=== PATIENT | female | born 1985 | race Caucasian/White ===

== ENCOUNTER 2021-09-07 10:06 | Emergency (ER) | payer OTHER, SELFPAY ==
--- NOTE | ~2021-09-07 | CT_ITS ---
EXAMINATION: CT abdomen pelvis w con EXAM DATE: 09/07/2021 14:59 INDICATION: Nausea nausea with dry heaves x4days. TECHNIQUE: Spiral CT of the abdomen and pelvis was performed following intravenous injection of 100 m L Omnipaque 350. Axial, coronal and sagittal images of the abdomen and pelvis were reviewed. The do se-length product (DLP) for this examination was 427.32 mGy-cm. The exposure was tailored according to patient size (auto mA exposure control), and iterative reconstruction (ASIR) was used as additiona l dose reduction technique. Comparison is made to prior examination from 12/06/2018. FINDINGS: The liver, spleen, adrenal glands and pancreas are unremarkable. There are cholecystectomy clips. Portal and splenic veins are patent. Kidneys enhance symmetrically. There is no hydronephr osis. There is IUD which appears to be centrally located within the endometrium, expected position. The bladder is unremarkable. There is no retroperitoneal or pelvic lymphadenopathy. Possible appendectomy. The stomach and small bowel are unremarkable. There is expected amount of co lonic stool. No free intraperitoneal gas. The heart is normal in size. There are no pericardial or pleural effusions. Dependent subsegmental atelectasis. The bones are unremarkable. IMPRESSION: 1. No acute intra-abdominal findings. Reviewed, dictated and finalized at location B. [employer]
[2021-09-07] MEDS: PANTOPRAZOLE SODIUM IV 40 MG VIAL IV PUSH (13:42)
[2021-09-07] MEDS: ONDANSETRON INJ 4 MG/2 ML VIAL IV PUSH (13:42)
[2021-09-07] MEDS: SODIUM CHLORIDE 0.9% IV 500 ML 999 ML IV CONT (13:42)
[2021-09-07 13:55] VITALS: BP 116/74; PULSE 87; RESP 20; TEMP 36.7; O2SAT 98
[2021-09-07 13:55] LABS: Basophils Absolute Auto 0.01 K/mm3 (0.00-0.10); Basophils Percent Auto 0.2 % (0.0-1.0); Hematocrit 41.5 % (35.0-49.0); Hemoglobin 13.9 g/dL (12.0-15.0); Immature Granulocyte Absolute 0.01 K/mm3 (0.00-0.00); Immature Granulocyte Percent A 0.2 % (0.0-0.0); Lymphocytes Absolute Auto 0.98 K/mm3 (1.10-4.50); Mean Corpuscular HGB Conc 33.5 g/dL (32.0-36.0); Mean Corpuscular Hemoglobin 29.3 pg (27.0-31.0); Mean Corpuscular Volume 87.6 fL (78.0-102.0); Mean Platelet Volume 9.7 fl (9.2-11.8); Monocytes Absolute Auto 0.41 K/mm3 (0.10-0.90); Monocytes Percent Auto 6.3 % (2.0-11.0); Neutrophils Absolute Auto 5.1 K/mm3 (1.7-7.2); Neutrophils Percent Auto 78.3 % (50.0-70.0); Platelet Count Result 264 K/mm3 (150-420); Red Blood Count 4.74 M/mm3 (4.20-5.40); Red Cell Distribution Width 12.8 % (11.6-14.4); White Blood Count 6.5 K/mm3 (4.8-10.8)
[2021-09-07 14:10] LABS: Alanine Aminotransferase 14 U/L (14-59); Albumin Level 3.9 g/dL (3.4-5.0); Alkaline Phosphatase 94 U/L (46-116); Anion Gap 11 mmol/L (8-16); Aspartate Amino Transferase 12 U/L (15-37); Bilirubin,Total 0.7 mg/dL (0.00-1.00); Blood Urea Nitrogen 7 mg/dL (7-18); Calcium 8.7 mg/dL (8.5-10.1); Carbon Dioxide 26 mmol/L (21-32); Chloride 101 mmol/L (98-108); Estimated CRCL calculation 79 ml/min; Estimated Glomerular Filt Rate > 60; Glucose 83 mg/dL (70-99); Lipase 78 U/L (73-393); Osmolality Calculated 283 mOsm/kg (285-295); Potassium 3.6 mmol/L (3.5-5.1); Sodium 138 mmol/L (136-145); Total Protein 7.9 g/dL (6.4-8.2)
[2021-09-07 14:20] LABS: SARS-CoV-2 Ag Negative (Negative)
[2021-09-07 14:25] LABS: SPREG INTERNAL CONTROL Positive; Serum Qual hCG Negative
[2021-09-07 15:13] LABS: Add Urine Microscopic? YES; Appearance Urine Clear (Clear); Bilirubin Urine Negative (Negative); Blood Urine Negative (Negative); Color Urine Light Yellow (Yellow); Glucose Urine UA Negative (Negative); Ketones Urine 2+ (Negative); Leukocyte Esterase Ur 1+ (Negative); Nitrate Urine Negative (Negative); Protein Urine Negative (Negative); Urobilinogen Urine 0.2 mg/dL (0.2-1.0)
[2021-09-07 15:19] LABS: RBC Urine 0-2 /hpf (0-2); Squamous Epithelial Cell Urine Moderate /hpf (Few); WBC Urine 16-20 /hpf (0-3)
[2021-09-07 15:21] LABS: Bacteria Urine 2+ /hpf; Mucus Urine Few /lpf
--- NOTE | 2021-09-07 16:32 | ED.NAVMDI ---
HPI - Nausea/Vomiting/Diarrhea General Source: patient Mode of arrival: ambulatory Limitations: no limitations History of Present Illness MD elicited complaint: nausea and abdominal pain Onset (ago): day(s) (1) Associated nausea: Yes Associated abdominal pain: Yes Location of pain: suprapubic Radiation: does not radiate Pain consistency: constant Severity: mild Pain scale (0-10): 7 Quality: cramping and aching Exacerbating factors: none Relieving factors: none Associated symptoms: nausea/vomiting and dysuria Related Data Home Medications Medication Instructions Recorded Confirmed fluoxetine 20 mg PO DAILY 09/07/21 09/07/21 Allergies Allergy/AdvReac Type Severity Reaction Status Date / Time No Known Allergies Allergy Verified 09/07/21 14:38 Review of Systems Review of Systems: All systems reviewed & are unremarkable except as noted in HPI and below PMFSH Past Medical History Medical History UTI (urinary tract infection) Surgical History Surgical History History of appendectomy Social History Social History Smoking status: Never smoker Substance use: never Exam Const: General: no acute distress Orientation/consciousness: patient oriented x3 Limitations: no limitations HENMT: Head: normal to inspection Ears: external ears normal and TM's normal bilaterally General nose exam: Normal external nose present and Normal nares present Mouth: Yes lip normal and Yes moist mucous membranes Teeth and gingiva: dentition normal Throat: posterior oropharynx normal Eyes: Pupils: Equal, round and reactive pupils present EOM: EOMs intact bilaterally Neck: Neck: normal visual inspection and no lymphadenopathy Chest: Chest palpation & inspection: normal inspection of the chest Resp: Effort & Inspection: normal respiratory effort Auscultation: clear to auscultation bilaterally Cardio: Rate: regular rate Rhythm: regular rhythm GI: GI Palp: Yes Soft to palpation and No Tenderness to palpation present (GI) Auscultation: normal bowel sounds : General: Yes no CVA tenderness Other: no acute bladder abnormality. Back/Spine/Pelvis: Back: no CVA tenderness Skin: General skin exam: normal color Rashes: no rashes Neuro: General: patient oriented x3, moves all extremities, no meningeal signs, no focal motor deficits and CN's II-XI intact bilaterally Extrem: General: normal to inspection and no pedal edema Psych: Appearance: grossly normal and well kempt Mental Status: mental status grossly normal Affect: normal affect Thought content: Yes Normal thought content present Course Course Emergency Course: Pt was stable in the ED. no acute GI loss. Reevaluation(s) Reevaluation #1: vss. pt was comfortable in the ED. Date: 09/07/21 Time: 11:04 Vital Signs Vital signs: Vital Signs Temperature 36.7 C 09/07/21 13:55 Pulse Rate 87 09/07/21 13:55 Respiratory Rate 20 09/07/21 13:55 Blood Pressure 116/74 09/07/21 13:55 Pulse Oximetry 98 09/07/21 13:55 Temperature 36.7 C 09/07/21 16:51 Pulse Rate 101 H 09/07/21 16:51 Respiratory Rate 20 09/07/21 16:51 Blood Pressure 102/76 09/07/21 16:51 Pulse Oximetry 98 09/07/21 16:51 MDM - Nausea/Vomiting/Diarrhea Differential Diagnosis Differential diagnosis: Likely gastroenteritis, dehydration and other (uti) Medical Records Attestation: I reviewed the patient's medical records. Lab Data Attestation: I reviewed the patient's lab results. Result diagrams: 09/07/21 13:48 09/07/21 13:48 Labs: Lab Results 09/07/21 09/07/21 09/07/21 Range/Units 13:14 13:48 13:48 WBC 6.5 (4.8-10.8) K/mm3 RBC 4.74 (4.20-5.40) M/mm3 Hgb 13.9 (12.0-15.0) g/dL Hct 41.5 (35.0-49.0) % MCV 87.6 (78.0-102.0) fL MCH 29.3
[2021-09-07 16:51] VITALS: BP 102/76; PULSE 101; RESP 20; TEMP 36.7; O2SAT 98
--- NOTE | 2021-09-07 16:53 | PC.NURSE ---
1650 IV WAS D/C'D ROCEPHIN 1 GRAM GIVEN IM LEFT GLUTEAL
== END 2021-09-07 16:53 | disposition home or self-care (01) ==
PROVIDERS: Emergency Provider Emergency Medicine; PCP Family Medicine
DX: N39.0 Urinary tract infection, site not specified (principal); Z20.822 Contact with and (suspected) exposure to COVID-19
CPT/HCPCS: 36415; 74177; 80053; 81001; 83690; 84703; 85025; 87426; 96361; 96374; 96375; 99283; 99284; C9113; C9803; J0696; J2405; J7040; Q9967

== ENCOUNTER 2024-05-08 14:00 | Outpatient (CLI) | payer OTHER, SELFPAY | END 2024-05-08 14:01 | disposition home or self-care (01) | LOC: CHSIMG 14:05 | PROVIDERS: PCP Family Medicine | DX: R10.32 Left lower quadrant pain (principal) | CPT/HCPCS: 99199 ==

== ENCOUNTER 2024-05-12 17:30 | Outpatient (CLI) | payer OTHER, SELFPAY ==
--- NOTE | ~2024-05-12 | CT_ITS ---
EXAMINATION: CT abdomen pelvis w con DATE: 05/12/2024 19:10 INDICATION: Left lower quadrant pain. TECHNIQUE: Computed tomography (CT) of the head was performed with 100 cc Omnipaque 350 intravenous c ontrast. The dose-length product was 563.11 mGy-cm. Automated exposure control and iterative reconstr uction technique were employed. COMPARISON: None FINDINGS: Lung bases are unremarkable. Heart size normal. No significant pleural or pericardial effus ion. Status post cholecystectomy. The liver, spleen, pancreas, adrenal glands and kidneys are unremar kable. Status post appendectomy. There is an involuting corpus luteal cyst of the right ovary measuri ng 2.4 cm. Nonobstructive bowel pattern. No evidence for diverticulitis. No hydronephrosis. There is a prominent left ovarian vein with prominent parametrial vessels, suspicious for pelvic congestion sy ndrome. IMPRESSION: 1. Prominent left ovarian vein with prominent parametrial vessels, suspicious for pelvic congestion s yndrome. Reviewed, dictated and finalized at location B. IMPRESSION: 1. Prominent left ovarian vein with prominent parametrial vessels, suspicious f or pelvic congestion syndrome.
[2024-05-12 17:59] LABS: Estimated Glomerular Filt Rate > 60
== END 2024-05-12 17:31 | disposition home or self-care (01) ==
LOC: CHSIMG 17:34 → CHSLAB 17:41
PROVIDERS: PCP Family Medicine
DX: R10.32 Left lower quadrant pain (principal)
CPT/HCPCS: 74177; Q9967

== ENCOUNTER 2024-09-17 14:01 | Outpatient (CLI) | payer OTHER, SELFPAY | END 2024-09-17 14:02 | disposition home or self-care (01) | LOC: ANHLAB 14:01 | PROVIDERS: PCP Family Medicine; Visit Provider Obstetrics & Gynecology | DX: N94.89 Other specified conditions associated with female genital organs and menstrual cycle (principal) | CPT/HCPCS: 36415; 86850; 86900; 86901 ==

== ENCOUNTER 2024-09-24 01:33 | Day surgery (SDC) | payer OTHER, SELFPAY ==
--- NOTE | 2024-09-11 15:20 | PC.NURSE ---
Report to the Outpatient Waiting Room, entrance under the green pavilion located off [facility], at time 0600 on date 09/24/24. Planned Procedure Time: 0730.? Time changes happen often and if your time is changed the preop area will call you the afternoon before. - You and your visitor will be asked to self-screen and do not enter if you have any COVID symptoms. Please call surgeon if you need to reschedule. - A mask is optional within the hospital at this time. Patients may have clear liquids (water, carbonated beverages, clear teas, apple juice) until 3 hours prior to surgery with a maximum of 20 ounces. 0430 - No food from midnight until time of surgery and no smoking. This includes no chewing gum, candy or mints. - Infants may have breast milk until 4 hours before surgery, formula 6 hours prior to surgery. - Children will be allowed to drink immediately following surgery.? If applicable, please bring a bottle or sippy cup to assist with drinking. Juice, water, soda, and popsicles are readily available.? For infants on formula, please bring formula the day of surgery.? Pacifiers are allowed. Take only the following medications with a SIP of water on the morning of surgery: None DO NOT STOP ANY OF YOUR OTHER PRESCRIPTION MEDICATIONS PRIOR TO SURGERY EXCEPT THE FOLLOWING Medications to discontinue per physician Vitamins & Supplements, Certrizine Date to take last dose 09/21/24- stop all vitamins and supplements, hold certrizine morning of surgery Please no make-up, nail barbadian, hairspray, perfume, deodorant, or body powder the day of surgery.? No jewelry (including any body piercings) or valuables the day of surgery, leave them at home.? Please take a shower or bath the night before, or the morning of, surgery with an antibacterial soap.? Wear comfortable, loose fitting clothing.? Children are encouraged to wear pajamas. - Jewelry must be removed prior to entering the operating room.? Rings and piercings that are not removed may be cut off. - The hospital will not accept responsibility for valuables.? - Please leave all valuables, including medications, at home the day of surgery. If you are going home after surgery, a licensed driver lifter of sanitation truck must drive you home.? - NO public transportation without another adult if you receive anesthesia. - We recommend that an adult stay with you for 24 hours following discharge. - We also recommend that you do not drive, make important decision, drink alcoholic beverages, or take any drugs that were not prescribed by your health care provider for at least 24 hours after your discharge time. For Pediatric surgeries, we recommend two adults accompany the child home. Follow any additional instructions given to you from your surgeon. Telephone instructions given to Patient- Arabella Christianson and asked if any additional questions and then verbalized understanding. Patient advised to call surgeon office or pre surgery nurse liaison [phone] if any additional questions.
[2024-09-11 15:28] VITALS: BMI 26.6
[2024-09-24] VITALS (11 sets, daily range): BP systolic 73–121; BP diastolic 39–80; PULSE 60–107; RESP 14–68; TEMP 36.1–37.1; O2SAT 97–100
--- NOTE | ~2024-09-24 | XR_ITS ---
EXAMINATION: XR stent kub - surgery DATE: 09/24/2024 08:12 INDICATION: Ureteral stent placement for abdominal surgery TECHNIQUE: 4 fluoroscopic images of the abdomen were obtained during procedure performed by Dr. Stanley méndez. Radiologist was not present for the imaging or procedure. The amount of fluoroscopy time used during this procedure was 0.8 minutes. COMPARISON: None. FINDINGS: Images demonstrate the catheter is advanced into the proximal left and right ureters. Contr ast injected through the catheters opacifies the normal-appearing bilateral renal collecting systems. IMPRESSION: 1. Fluoroscopy utilized during bilateral internal ureteral stent placement. See procedure note for fu rther detail. Reviewed, dictated and finalized at location A. [employer] SPRAY WORKER IMPRESSION: 1. Fluoroscopy utilized during bilateral internal ureteral stent placement. See procedure note for further detail.
[2024-09-24] MEDS: LACTATED RINGERS 1,000 ML 30 ML IV CONT ×2 (06:30→09:19)
[2024-09-24] MEDS: ACETAMINOPHEN 500 MG TABLET 1000 MG PO ×3 (07:00→17:33)
[2024-09-24] MEDS: KETOROLAC 15 MG/ML VIAL (*BKC) IV PUSH (07:00)
--- NOTE | 2024-09-24 07:01 | WPDANESEPPF ---
Anes - Initial Pre Proc Eval Procedure: Operation Date: 09/24/24 07:30 Proposed Procedures p Total Laparoscopic Hysterectomy with Bilateral Salpingectomy - Home Brannon MD s Stent Placement for Abdominal Surgery - Mandy Yi MD Date/Time: 09/24/24 07:01 Surgeon: Home Brannon MD Pre Op Diagnosis: Pelvic Congestion Synd Patient Data Age: 39 Gender: F Height: 1.65 m Weight: 72.7 kg Allergies Allergy/AdvReac Type Severity Reaction Status Date / Time fluconazole [From Diflucan] Allergy Redness of Verified 09/11/24 15:07 Skin hydromorphone [From Dilaudid] AdvReac Agitated Verified 09/11/24 15:07 Home Medications Medication Instructions Recorded Confirmed Type cetirizine 10 mg capsule (All Day 10 mg PO DAILY PRN allergies 06/13/23 09/11/24 History Allergy (cetirizine)) cranberry-vit 1 cap PO DAILY 09/11/24 09/11/24 History C-B.coag-FOS-L.acid-L.rham 250 mg-30 mg-39.5 mg capsule vitamin B complex 1 tablet PO DAILY 09/11/24 09/11/24 History Patient hx anesthesia problems: post op nausea/vomiting Family hx anesthesia problems: none Results Review: All pre-operative results and documents have been reviewed as part of the pre-operative evaluation. [facility] Past Medical History Medical History UTI (urinary tract infection) Surgical History Surgical History History of appendectomy Social History Social History Smoking status: Never smoker Substance use: never Living arrangements: with family Spiritual care concerns: No Anes - Eval Final PreProcedure Day of Procedure 09/24/24 07:01 Patient weight: overweight Heart: regular rate and rhythm Lungs: clear to auscultation Airway: Mallampati scale class II Neurological: alert and oriented Last oral intake: >/= 8 hours ASA classification: II Emergent: no Anesthetic plan: proceed Anesthesia type and monitoring: general LMA and standard monitoring Results Review: All pre-operative results and documents have been reviewed as part of the pre-operative evaluation. Informed Consent: The patient's anesthetic plan and its attendant risks and benefits were discussed with the patient/family/POA. Questions were solicited and answers provided to the satisfaction of the patient/family/POA.
--- NOTE | 2024-09-24 07:15 | WPDHPUPDATE1 ---
History and Physical Update Update Date/Time: 09/24/24 07:15 procedure to possibly include Left oophorectomy History and Physical has been reviewed, including an updated exam of the patient. There are NO changes in the patient's condition. Risks, benefits, and alternatives have been discussed and questions answered. Patient agrees to proceed with procedure.
--- NOTE | 2024-09-24 07:23 | WPDURCON ---
Assessment and Plan Assessment and plan (1) Dyspareunia: Status: Acute Plan 39 year old scheduled for hysterectomy -- plan bilateral internal/external stent insertion for ureteral identification - risks, benefits, alternatives discussed. Agree to proceed. Urology Consult Note HPI Date Seen: 09/24/24 Requesting Physician: Home Brannon MD Primary Care Provider: Jamal Gross M.D. Consult Narrative Narrative: Arabella Christianson is a 39 year old female here for hysterectomy PMFSH Past Medical History Medical History UTI (urinary tract infection) Surgical History Surgical History History of appendectomy Social History Social History Smoking status: Never smoker Substance use: never Living arrangements: with family Spiritual care concerns: No Meds Home Medications and Allergies Home Medications Medication Instructions Recorded Confirmed Type cetirizine 10 mg capsule (All Day 10 mg PO DAILY PRN allergies 06/13/23 09/11/24 History Allergy (cetirizine)) cranberry-vit 1 cap PO DAILY 09/11/24 09/11/24 History C-B.coag-FOS-L.acid-L.rham 250 mg-30 mg-39.5 mg capsule vitamin B complex 1 tablet PO DAILY 09/11/24 09/11/24 History Allergies Allergy/AdvReac Type Severity Reaction Status Date / Time fluconazole [From Diflucan] Allergy Redness of Verified 09/11/24 15:07 Skin hydromorphone [From Dilaudid] AdvReac Agitated Verified 09/11/24 15:07 Exam Narrative: awake, alert, no acute distress
--- NOTE | 2024-09-24 07:26 | WPDHPUPDATE1 ---
History and Physical Update Update Date/Time: 09/24/24 07:26 History and Physical has been reviewed, including an updated exam of the patient. There are NO changes in the patient's condition. Risks, benefits, and alternatives have been discussed and questions answered. Patient agrees to proceed with procedure.
[2024-09-24] MEDS: ceFAZolin 2 GM/D5W 50 ML 2 GM/50 ML BAG IVPB (07:40)
[2024-09-24] MEDS: ceFAZolin SODIUM 1 GM VIAL (07:40)
[2024-09-24] MEDS: SCOPOLAMINE 1 MG PATCH 1 PATCH TRANSDERM (07:44)
[2024-09-24 07:54] LABS: BEDSIDEPREGUCG Negative (Negative)
--- NOTE | 2024-09-24 08:04 | P.OP_ITS ---
Procedure Note - Detailed Date of Procedure 09/24/24 Pre-op Diagnosis Pelvic Congestion Synd Post-op Diagnosis Same Procedure Performed Cystoscopy, bilateral internal-external ureteral stent insertion, bilateral retrograde pyelogram Surgeon Mandy Yi MD Anesthesia General Description of Procedure Informed consent was obtained. Patient in the room. She was given preoperative IV antibiotics. She was just anesthesia. She was placed in dorsal lithotomy position she was prepped and draped in normal sterile fashion. We inserted a 22 F cystoscope through the urethra into the bladder. Inspection of bladder revealed no mucosal abnormalities. The patient had bilateral orthotopic your offices. We cannulated the left ureteral orifice with a wire and then placed a 6 F introducer over the wire. Retrograde pyelogram was performed showing appropriate position. Over the wire replaced the introducer and lighted stent. We performed identical procedure on the contralateral side. Appropriate position of stent was confirmed with radiography. A 16 F Correa catheter was placed. The stents were adhered to the catheter. 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 Plan for stent removal at completion of operation Complications No immediate complications Condition Stable
[2024-09-24] MEDS: fentaNYL CITRATE INJ (*CRX) 100 MCG/2 ML VIAL 25 MCG IV PUSH ×12 (09:24→10:28)
[2024-09-24] MEDS: ONDANSETRON INJ 4 MG/2 ML VIAL IV PUSH ×2 (09:34→14:22)
--- NOTE | 2024-09-24 09:39 | W.PM.PROC2 ---
Procedure Note - Detailed Date of Procedure 09/24/24 Pre-op Diagnosis Pelvic Congestion Synd Post-op Diagnosis Same Procedure Performed Total laparoscopic hysterectomy and bilateral salpingo-oophorectomy. Surgeon Home Brannon MD Anesthesia General Findings Cystic left ovary. enlarged uterus - mild. Description of Procedure This patient was taken to the operating room. She was prepped and draped in the dorsal lithotomy position after induction of general anesthesia. The uterine manipulator and Davina cup were placed. This was done with a speculum and tenaculum. The speculum was placed. The cervix was grasped with a tenaculum. The stay sutures were placed at 3 and 9:00 a.m.. The stay sutures of 0 Vicryl were brought through the appropriately sized Davina cup. The tip of the OXANA manipulator was placed in the intrauterine cavity. The cup was slid into place around the cervix and into the fornices. It was locked into place. The sutures were then wrapped around the handle and tied under tension. A 5 mm skin incision was made in the left upper quadrant the abdomen. A 5 mm trocar was inserted into the intrauterine cavity under direct visualization of the scope. Pneumoperitoneum was achieved. A left lower quadrant 11 mm incision was made with scalpel. An 11 mm trocar was inserted into the anterior abdominal cavity under direct visualization the scope. A 5 mm infraumbilical incision was made with a scalpel and a 5 mm trocar was inserted the intra-abdominal cavity under direct visualization of the scope. Bilateral ureteral lysis was performed. This was done from the pelvic brim down to the uterine artery. This was done with careful dissection using sharp and blunt dissection. The infundibulopelvic ligaments were isolated after identification of the ureters bilaterally. The infundibulopelvic ligament on the left side was cauterized and transected with LigaSure cautery. The para ovarian tissue was cauterized and transected with LigaSure cautery on the left. Moving around the ovary into the broad ligament the tissue was cauterized transected with LigaSure cautery. the suspensory ligament on the ovary was cauterized transected on the right. The fallopian tube was excised using LigaSure cautery. The round ligaments were cauterized transected with LigaSure cautery this was done in a bilateral fashion. In a stepwise fashion along the lateral aspects of the uterus the round ligament and broad ligaments were cauterized transected down to the level of the uterine arteries. A bladder flap was created in the bladder was moved distally to the end of the cervix and over the Davina cup. The bilateral uterine arteries were cauterized and transected. Colpotomy was then performed. In a circumferential fashion the vagina was transected using unipolar cautery. The incision was made down on the Davina cup. The uterus, cervix, fallopian tubes and ovaries were taken out through the vagina. A pneumo occluder was placed in the vagina. The vaginal cuff was closed with a 0 V lock suture in a running fashion. The pelvis was irrigated with copious amounts antibiotic irrigation. The ureters were again examined and found to be intact and flowing freely under the uterine arteries into the bladder. The vagina was irrigated with Betadine solution after removal of the Pneumo occluder. The patient was taken to recovery room. She was stable condition. Sponge lap and needle counts were correct x2. Estimated Blood Loss 100 Drains Yes Packing No Pathology Yes Complications No immediate complications Condition Stable Disposition Floor
[2024-09-24] MEDS: DEXTROSE 5%/0.45% SOD CHL 1,000 ML 125 ML IV CONT ×2 (11:07→22:40)
--- NOTE | 2024-09-24 11:16 | PC.NURSE ---
This patient, Arabella Christianson, was received from PACU on 09/24/24 at 1050. Patient/family oriented to unit policies and routines
[2024-09-24] MEDS: KETOROLAC 30 MG/ML VIAL (*BKC) IV PUSH ×2 (11:35→17:33)
[2024-09-24] MEDS: SIMETHICONE 80 MG TAB.CHEW PO ×2 (14:19→20:42)
[2024-09-24] MEDS: oxyCODONE HCL (*CRX) 5 MG TAB IR 10 MG PO (14:19)
[2024-09-24] MEDS: DOCUSATE SODIUM 100 MG CAPSULE PO (17:33)
[2024-09-24] MEDS: oxyCODONE HCL (*CRX) 5 MG TAB IR PO (20:42)
[2024-09-25 00:20] VITALS: BP 98/53; PULSE 74; RESP 18; TEMP 36.8; O2SAT 99
[2024-09-25] MEDS: ACETAMINOPHEN 500 MG TABLET 1000 MG PO ×3 (00:25→12:39)
[2024-09-25] MEDS: KETOROLAC 30 MG/ML VIAL (*BKC) IV PUSH (00:25)
[2024-09-25 04:40] VITALS: BP 100/63; PULSE 74; RESP 18; TEMP 36.3; O2SAT 100
[2024-09-25] MEDS: IBUPROFEN 600 MG TABLET PO ×2 (07:05→12:38)
[2024-09-25] MEDS: SIMETHICONE 80 MG TAB.CHEW PO ×2 (07:05→12:38)
[2024-09-25] MEDS: DOCUSATE SODIUM 100 MG CAPSULE PO (07:06)
--- NOTE | 2024-09-25 07:47 | WPDANESPN ---
Anes - Prog Note Post-Op Date/Time: 09/25/24 07:47 Cardiovascular status: normal Respiratory status: normal Airway patency: baseline Mental status: baseline Post-Op hydration status: normal Vital Signs: Last Vital Signs Temp 36.3 C L 09/25/24 04:40 Pulse 74 09/25/24 04:40 Resp 18 09/25/24 04:40 BP 100/63 09/25/24 04:40 Pulse Ox 100 09/25/24 04:40 O2 Del Method Room Air 09/24/24 10:30 O2 Flow Rate 8 09/24/24 09:19 Pain Score (VAS): 310 I/O: Intake & Output 09/24/24 09/24/24 09/25/24 15:59 23:59 07:59 Intake Total 890 1400 1640 Output Total 390 296 1714 Balance 640 1250 140 09/24/24 07:48 POC Urine HCG, Qual Negative Post-procedural complaints: none Patient Feedback: Patient satisfied with anesthetic care.
[2024-09-25 08:20] VITALS: BP 113/68; PULSE 83; RESP 16; TEMP 36.7; O2SAT 99
--- NOTE | 2024-09-25 08:21 | PM.GYNPNOP ---
DIRECTOR CLINICAL OPERATIONS - A/P Postoperative Procedures: Procedures Operation Date: 09/24/24 07:30 Actual Procedure Side Surgeon p Total Laparoscopic Hysterectomy with Bilateral Salpingectomy, Left Oopherectomy Bilateral Home Brannon MD s Stent Placement for Abdominal Surgery Bilateral Mandy Yi MD Postoperative day: 1 Postoperative status: doing well Postoperative plan: see orders Time Spent With Patient Time: Total time spent is greater than 50% in coordination of care (as documented) at patient's floor/unit and/or counseling patient: Time with patient: less than 15 minutes DIRECTOR CLINICAL OPERATIONS- PN:Subj Post-Op Subjective Date/time seen: 09/25/24 08:21 Subjective: patient reports feeling better, patient has no complaints and pain is well controlled Exam Const: General: healthy appearing, comfortable and no acute distress Resp: Auscultation: clear to auscultation bilaterally, no rales, no rhonchi and no wheezes Cardio: Rate: regular rate Heart sounds: no click, no murmurs and no rubs GI: Inspection: non-distended Auscultation: normal bowel sounds Extrem: General: normal to inspection, no pedal edema and no calf tenderness DIRECTOR CLINICAL OPERATIONS - PN: Obj Data Vital Signs Vital Signs: Vital Signs - 24 hr 09/24/24 09:19 09/24/24 09:30 09/24/24 09:45 Temperature 97.5 F L Pulse Rate 107 H 77 88 Respiratory Rate 20 14 14 Blood Pressure 111/64 107/72 107/72 Pulse Oximetry 100 99 99 Oxygen Delivery Simple Face Mask Room Air Room Air Oxygen Flow Rate 8 09/24/24 10:00 09/24/24 10:15 09/24/24 10:30 Temperature Pulse Rate 73 80 71 Respiratory Rate 18 16 68 H Blood Pressure 111/71 107/70 108/72 Pulse Oximetry 100 97 100 Oxygen Delivery Room Air Room Air Room Air Oxygen Flow Rate 09/24/24 10:50 09/24/24 15:45 09/24/24 16:45 Temperature 96.9 F L 98.8 F Pulse Rate 60 75 71 Respiratory Rate 14 16 Blood Pressure 103/71 73/39 L 89/57 L Pulse Oximetry 99 97 Oxygen Delivery Oxygen Flow Rate 09/24/24 19:20 09/25/24 00:20 09/25/24 04:40 Temperature 98.1 F 98.2 F 97.4 F L Pulse Rate 63 74 74 Respiratory Rate 18 18 18 Blood Pressure 90/49 L 98/53 L 100/63 Pulse Oximetry 97 99 100 Oxygen Delivery Oxygen Flow Rate Intake/Output Intake/Output: Intake & Output 09/22/24 09/23/24 09/24/24 09/25/24 23:59 23:59 23:59 23:59 Intake Total 2290 1640 Output Total 400 1500 Balance 1890 140 Meds/Results Medications: Active Medications Generic Name Dose Route Start Last Admin Trade Name Freq PRN Reason Stop Dose Admin Acetaminophen 1,000 mg 09/24/24 12:00 09/25/24 07:05 Acetaminophen 500 Mg Tablet PO 1,000 mg Q6HR KANDY Administration Docusate Sodium 100 mg 09/24/24 17:00 09/25/24 07:06 Docusate Sodium 100 Mg Capsule PO 100 mg BID KANDY Administration Dextrose/Sodium Chloride 1,000 mls @ 125 mls/hr 09/24/24 10:35 09/25/24 07:13 Dextrose 5% Sodium Chloride 0.45% IV CONT Not Given .Q8H KANDY Ibuprofen 600 mg 09/25/24 06:00 09/25/24 07:05 Ibuprofen 600 Mg Tablet PO 600 mg Q6HR KANDY Administration Naloxone HCl 0.1 mg 09/24/24 10:35 Naloxone Hcl 0.4 Mg/Ml Vial IV PUSH Q2M PRN Respiratory rate less than 10 Ondansetron HCl 4 mg 09/24/24 10:35 09/24/24 14:22 Ondansetron Inj 4 Mg/2 Ml Vial IV PUSH 4 mg Q6H PRN Administration Nausea And Vomiting Oxycodone HCl 5 mg 09/24/24 10:35 09/24/24 20:42 Oxycodone Hcl (*Crx) 5 Mg Tab Ir PO 5 mg Q4H PRN Administration Pain Rated 4-6 Oxycodone HCl 10 mg 09/24/24 10:35 09/24/24 14:19 Oxycodone Hcl (*Crx) 5 Mg Tab Ir PO 10 mg Q6H PRN Administration Pain Rated 7-10 Simethicone 80 mg 09/24/24 12:00 09/25/24 07:05 Simethicone 80 Mg Tab.Chew PO 80 mg TIDWM KANDY Administration Radiology Results: ITS Impressions Ureter Stent X-Ray 09/24/24 08:33 IMPRESSION: 1. Fluoroscopy utilized during bilateral internal ureteral stent placement. See procedure note for further detail.
== END 2024-09-25 13:00 | disposition home or self-care (01) ==
LOC: ANHSURGERY 06:01 → ANHOB2 10:40
PROVIDERS: Urology; PCP Family Medicine; Visit Provider Obstetrics & Gynecology
PROC: 0UT9FZZ Resection of Uterus, Via Natural or Artificial Opening With Percutaneous Endoscopic Assistance (ICD-10-PCS; CPT 58571; principal; 2024-09-24 07:30)
PROC: (CPT 52005; 2024-09-24 07:30)
DX: N94.89 Other specified conditions associated with female genital organs and menstrual cycle (principal); N72 Inflammatory disease of cervix uteri; N88.8 Other specified noninflammatory disorders of cervix uteri; N83.02 Follicular cyst of left ovary; N83.292 Other ovarian cyst, left side; G89.18 Other acute postprocedural pain; Z98.890 Other specified postprocedural states; Z90.49 Acquired absence of other specified parts of digestive tract; Z87.442 Personal history of urinary calculi; Z80.0 Family history of malignant neoplasm of digestive organs; Z80.1 Family history of malignant neoplasm of trachea, bronchus and lung
CPT/HCPCS: 52005; 58571; 88307; 99199; A9270; C1758; C1769; J0690; J1100; J1171; J1885; J2003; J2250; J2405; J2704; J3010; J7030; J7120; Q9968

== ENCOUNTER 2025-03-17 15:06 | Emergency (ER) | payer OTHER, SELFPAY ==
--- NOTE | ~2025-03-17 | XR_ITS ---
XR shoulder RT min 2V Ordering provider: Alex Mcadams MD History: . Fall onto RT shoulder X 14:00 today, unable to let arm hang . Comparison: None. FINDINGS: BONES: Fracture in the area of the greater tuberosity is noted. No other definite fractures seen. JOINT SPACES: The acromioclavicular joint is normal. The glenohumeral joint is normal. SOFT TISSUES: Normal. IMPRESSION: Fracture in the area of the greater tuberosity. Follow-up advised. Reviewed, dictated and finalized at location A.
--- OUTSIDE RECORDS SUMMARY | 2025-03-17 15:09 | XMS_ITS | Data Portability ---
Author Organization [facility] Address [address] [place] [address] [place] [address] Care Team Providers Care Real Estate Inspector Name Role Phone MARCIO RODRIGUEZ Primary Care Provider Assessment No assessment recorded. Plan of Treatment Reminders Order Date Submit Date Provider Last Modified By Organization Details Last Modified Time Details Appointments None recorded. Lab urinalysis, dipstick [address], [address], [address], [place], [address], 14:42:37 urinalysis, dipstick [address], [facility] [address], [place], [address], 19:05:41 Referral None recorded. Procedures None recorded. Surgeries None recorded. Imaging None recorded. Medication Orders Bactrim DS 800 mg-160 mg tablet 2024 025 [facility], [address] [place], [address], 5 14:44:59 fluconazole 150 mg tablet 2024 025 BENITO [facility], [address] [place], [address], 5 14:42:55 Cipro 500 mg tablet 2024 025 [email or web address] [facility], [address] [facility], [place], [address], 5 14:07:32 metronidazo le 0.75 % (37.5 mg/5 gram) vaginal gel 2024 025 [email or web address] [facility], [address] [facility], [place], [address], 5 14:07:19 Diflucan 150 mg tablet 2024 025 [facility], [address] [place], [address], 19:11:14 Patient TargetsNo targets recorded. Patient InstructionsNo instructions recorded. Reason for Referral None Reported. Results Created Date Observation Date Name Description Value Unit Range Abnormal Flag Note LastModifiedBy Organization Detail LastModifiedTime 11/05/1911/05/2024 [facility], [place] bacterial vaginosis (bv), tma Negati ve negati ve This test detec ts ribos omal RNA from bacte victoriano assoc iated with bacte rial vagin osis (BV), inclu ding Lacto bacil liliana (L. gasse ri, L. crisp atus and L. jense tae), Gardn erell a vagin gab, and Atopo bium vagin ae by Trans cript ion-M ediat ed Ampli ficat ion (TMA) . A singl e quali tativ e resul t is repor sarah based on instr ument softw are to deter mine BV posit jori or negat jori statu s. Not Available [facility] (Lab) [address], [place], [address], 11/06/2024 22:07:17 11/05/1911/05/2024 WOMEN 'S HEALT H SWAB, [place]ONNA kathe species, tma Negati ve negati ve Not Available [facility] (Lab) [address] [place], [address], 11/06/2024 22:07:17 11/05/19 25 11/05/2024 WOMEN 'S HEALT H SWAB, [place]ON[place] kathe glabrata, tma Negati ve negati ve Not Available [facility] (Lab) [address] , [place], [address], 11/06/2024 22:07:17 11/05/19 25 11/05/2024 WOMEN 'S HEALT H SWAB, [place] trichomonas vaginalis, tma Negati ve negati ve This assay tests for and diffe renti ates betwe en Judie da glabr hany, the Judie da speci es group (C. albic ans, C. tropi calis , C. parap marce is, C. dubli jamir is), and Trich omona s vagin gab by Trans cript ion-M ediat ed Ampli ficat ion (TMA) . Not Available [facility] (Lab) [address] , [place], [address], 11/06/2024 22:07:17 11/05/19 25 11/05/2024 CULTU RE: URINE result report SEE RESULT S BELOW Test: Cultu re: Urine Speci men Sourc e: Urine - Clean Catch Speci men Type: Urine Speci men Date: 2024 1756 Resul t Date: 20243 Resul t Statu s: Final resul t Abnor mal: No Resul ting Lab: [facility] [address] [facility] [address] Tel: CULTU RE ----- ----- ----- --- No growt h in 1 day (dete ction level of 10,00 0 colon ies / ml.) Not Available [facility] (Lab) [address] , [place], [address], 11/06/2024 22:07:18 11/05/19 25 11/05/2024 urina lysis , dipst ick Leukocytes ++ Not Available [address], [place], [address], 11/05/2024 18:54:55 11/05/19 25 11/05/2024 urina lysis , dipst ick Protein + Not Available [facility] [address], [place], [address], 11/05/2024 18:54:55 11/05/19 25 11/05/2024 urina lysis , dipst ick pH 8 Not Available [facility] [address], [place], [address], 11/05/2024 18:54:55 11/05/19 25 11/05/2024 urina lysis , dipst ick Blood +++ Not Available [facility] [address], [place], [address], 11/05/2024 18:54:55 11/05/19 25 11/05/2024 urina lysis , dipst ick Specific [place] 1.000 Not Available [facility] [address], [place], [address], 11/05/2024 18:54:55 11/19/19 25 11/19/2024 CULTU RE: URINE result report SEE RESULT S BELOW Test: Cultu re: Urine Speci men Sourc e: Urine - Clean Catch Speci men Type: Urine Speci men Date: 2024 1328 Resul t Date: 2024 0558 Resul t Statu s: Final resul t Abnor mal: No Resul ting Lab: [facility] [address] [facility] [address] Tel: CULTU RE ----- ----- ----- --- No growt h in 1 day (dete ction level of 10,00 0 colon ies / ml.) Not Available [facility] (Lab) [address] [facility], [place], [address], 11/21/2024 07:03:08 11/19/19 11/19/2024 WOMEN 'S HEALT H SWAB PLUS, KEYONNA bacterial vaginosis (bv), tma Negati ve negati ve Not Available [facility] (Lab) [address] [place], [address], 11/24/2024 17:37:07 11/19/19 25 11/19/2024 WOMEN 'S HEALT H SWAB PLUS, KEYONNA kathe species, tma Negati ve negati ve Not Available [facility] (Lab) [address] [facility], [place], [address], 11/24/2024 17:37:07 11/19/19 25 11/19/2024 WOMEN 'S HEALT H SWAB PLUS, [place]ON[place] kathe glabrata, tma Negati ve negati ve Not Available [facility] (Lab) [address] [facility], [place], [address], 11/24/2024 17:37:07 11/19/19 25 11/19/2024 WOMEN 'S HEALT H SWAB PLUS, KEYONNA trichomonas vaginalis, tma Negati ve negati ve Not Available [facility] (Lab) [address] [place], [address], 11/24/2024 17:37:07 11/19/19 25 11/19/2024 [facility] [place] chlamydia trachomatis, PCR Negati ve negati ve Not Available [facility] (Lab) [address] [place], [address], 11/24/2024 17:37:07 11/19/19 25 11/19/2024 WOMEN 'S HEALT H SWAB PLUS, KEYONNA neisseria gonorrhoeae, PCR Negati ve negati ve Bacte rial vagin osis detec ts the follo wing bacte victoriano assoc iated with bacte rial vagin osis (BV): Lacto bacil liliana (L. gasse ri, L. crisp atus and L. jense tae), Gardn erell a vagin gab, and Atopo bium vagin ae. A singl e quali tativ e resul t is repor sarah base on instr ument softw are to deter mine BV posit jori or negat jori statu s. The Judie da speci es group tests for C. albic ans, C. tropi calis , C. parap marce is, C. dubli niens is. Testi ng is perfo rmed using the Trans cript ion Media sarah Ampli ficat ion metho d. Tests for Judie da glabr hany, Trich omona s vagin gab, Chlam ydia trach omati s, and Neiss eria gonor rhoea e are also inclu ded in this panel . Not Available [facility] (Lab) [address], [place], [address], 11/24/2024 17:37:07 11/19/19 25 11/19/2024 urina lysis , dipst ick Leukocytes trace Not Available [facility] [address], [place], [address], 11/19/2024 14:10:00 11/19/19 25 11/19/2024 urina lysis , dipst ick Protein + Not Available [facility] [address], [place], [address], 11/19/2024 14:10:00 11/19/19 25 11/19/2024 urina lysis , dipst ick pH 6 Not Available [facility] [address], [place], [address], 11/19/2024 14:10:00 11/19/19 25 11/19/2024 urina lysis , dipst ick Blood +++ Not Available [facility] [address], [place], [address], 11/19/2024 14:10:00 11/19/19 25 11/19/2024 urina lysis , dipst ick Specific [place] 1.005 [facility] Available [facility] [address], [place], [address], 11/19/2024 14:10:00 11/19/19 25 11/19/2024 urina lysis , dipst ick Appearance clear Not Available [facility] [address], [place], [address], 11/19/2024 14:10:00 11/19/19 25 11/19/2024 urina lysis , dipst ick Color yellow Not Available [facility] [address], [place], [address], 11/19/2024 14:10:00 09/24/20 24 09/24/2024 XR, abdom en + pelvi s No observ ation record ed. [address], [place], [address], 09/24/2024 11:42:33 Result Notes None recorded. Problems Name Problem SNOMED Code Status Onset Date Resolution Date Notes Provider Name and Address Organization Details Recorded Time History of calculus of kidney 321750930 Active Humaira sanchez, [facility] 14:55:43 Problem Notes None recorded. Procedures Surgical History Date Name Laterality Status Provider Name and Address Organization Details Recorded Time TOTAL HYSTERECTOMY, LAPAROSCOPIC, WITH BILATERAL SALPINGECTOMY (SURG) completed Home Brannon MD [address], [place], [address], [facility] 09/24/2024 21:15:43 024 ROBOTIC ASSISTED HYSTERECTOMY W/BILATERAL SALPINGO-OOPHORECT ARPIT (SURG) completed Graciela Valdez [facility] 09/24/2024 09:20:06 024 ROBOTIC ASSISTED HYSTERECTOMY W/BILATERAL SALPINGO-OOPHORECT ARPIT (SURG) completed Graciela Valdez [facility] 09/24/2024 11:39:18 024 ROBOTIC ASSISTED HYSTERECTOMY W/BILATERAL SALPINGO-OOPHORECT ARPIT (SURG) completed Gracielaazam Lathamen [facility] 09/24/2024 11:38:36 023 Date of Last Pap Smear completed [facility] 05/26/2024 15:08:43 021 Cholecystectomy completed [facility] 05/26/2024 15:00:34 019 Appendectomy completed [facility] 05/26/2024 14:54:30 Imaging Results None recorded. Procedure Notes None recorded. Medical Equipment None Reported. Allergies Allergen ID Allergen Name Allergen Category Reaction Reaction Severity Criticality Documentation Date Start Date Code Code System Note Provider Name and Address Organization Details Recorded Time 70523 Monistat Simple Therapy medicatio n swelling severe Not available 05/26/2024 15732 72 RxNorm Brionna Coates [facility] 14:06:41 Medications Name Sig Start Date Stop Date Status Note LastModified by Organization Details LastModified Time clindamycin HCl 300 mg capsule 09/15 completed Not Available Not Available Not Available tioconazole 6.5 % vaginal ointment Insert 1 applicato rful every day by vaginal route for 5 days. 2024 active Not Available Not Available Not Avai lable fluconazole 150 mg tablet Take 1 tablet every 72 hours by oral route. 2024 active Not Available Not Available Not Avai lable fluconazole 200 mg tablet 05/26 completed Not Available Not Available Not Available metronidazo le 0.75 % (37.5 mg/5 gram) vaginal gel INSERT 1 APPLICATO RFUL EVERY DAY BY VAGINAL ROUTE. active Not Available Not Available No t Available clobetasol 0.05 % topical cream 05/26 completed Not Available Not Available Not Available acetaminoph en 300 mg-codeine 30 mg tablet 09/15 completed Not Available Not Available Not Available ciprofloxac in 500 mg tablet Take 1 tablet every 12 hours by oral route. 11/19 completed Not Available Not Available Not Available sulfamethox azole 800 mg-trimetho prim 160 mg tablet Take 1 tablet every 12 hours by oral route. active Not Available Not Available No t Available oxycodone-a cetaminophe n 5 mg-325 mg tablet 11/05 completed Not Available Not Available Not Available cephalexin 500 mg capsule 05/26 completed Not Available Not Available Not Available estradiol 0.01% (0.1 mg/gram) vaginal cream 05/26 completed Not Available Not Available Not Available doxycycline hyclate 100 mg tablet 05/26 completed Not Available Not Available Not Available amoxicillin 875 mg-potassiu m clavulanate 125 mg tablet 07/10 completed Not Available Not Available Not Available Tri-Sprinte c (28) 0.18 mg(7)/0.215 mg(7)/0.25 mg(7)-0.035 mg tablet 07/10 completed Not Available Not Available Not Available B Complex-Vit lara B12 active Not Available Not Available Not Available Culturelle Probiotic-P rebiotic active Not Available Not Available Not Available Vitals Date Recorded Body height Body mass index (BMI) Body weight Systolic And Diastolic Provider Name and Address Organization Details Last Updated DateTime 11/05/2024 162.56 cm 28 kg/m2 35664.56 g 126/86 mm[Hg] [facility] 11/05/2024 18:18:24 Date Recorded Body height Body mass index (BMI) Body weight Systolic And Diastolic Provider Name and Address Organization Details Last Updated DateTime 11/19/2024 162.56 cm 28 kg/m2 62017.56 g 115/74 mm[Hg] [facility] 11/19/2024 14:05:55 Date Recorded Body height Body mass index (BMI) Body weight Systolic And Diastolic Provider Name and Address Organization Details Last Updated DateTime 07/10/2024 162.56 cm 27.6 kg/m2 31444.37 g 118/77 mm[Hg] [facility] 07/10/2024 16:42:42 Date Recorded Body height Body mass index (BMI) Body weight Systolic And Diastolic Provider Name and Address Organization Details Last Updated DateTime 09/15/2024 162.56 cm 28 kg/m2 44818.56 g 117/78 mm[Hg] Brionna Lujaner [facility] 09/15/2024 10:43:15 Date Recorded Body height Body mass index (BMI) Body weight Systolic And Diastolic Provider Name and Address Organization Details Last Updated DateTime 10/01/2024 162.56 cm 27.3 kg/m2 13449.19 g 115/79 mm[Hg] Brionna Jaxon [facility] 10/01/2024 14:00:46 Social History Question Answer Notes LastModified by Organizat ion Details LastModified Time Tobacco Smoking Status Never Smoker Humaira sanchez, [facility] 05/26/2024 15:00:23 If You Are , What Was Your Level Of Alcohol Consumption Prior To ? Occasional [email or web address] Information not available 05/26/2024 Are You Blind Or Do You Have Difficulty Seeing? No [email or web address] Information n ot available 05/26/2024 What Is Your Level Of Caffeine Consumption? Occasional [email or web address] Information not available 05/26/2024 How Much Tobacco Do You Chew? None [email or web address] Information not available 05/26/2024 In The 14 Days Before Symptom Onset, Have You Had Close Contact With A Laboratory-confirm ed COVID-19 While That Case Was Ill? No [email or web address] Information n ot available 05/26/2024 In The 14 Days Before Symptom Onset, Have You Had Close Contact With A Person Who Is Under Investigation For COVID-19 While That Person Was Ill? No [email or web address] Information not available 05/26/2024 Have You Been To An Area Known To Be High Risk For COVID-19? No [email or web address] Information not available 05/26/2024 Are You Deaf Or Do You Have Serious Difficulty Hearing? No [email or web address] Information not available 05/26/2024 What Type Of Diet Are You Following? REGULAR Information n ot available 05/26/2024 What Is The Highest Grade Or Level Of School You Have Completed Or The Highest Degree You Have Received? [id number] [email or web address] Information not available 05/26/2024 Are There Any Guns Present In Your Home? No [email or web address] Information not available 05/26/2024 Do You Use Protection During Sex? No [email or web address] Information not available 05/26/2024 Do You Use Your Seat Belt Or Car Seat Routinely? Yes [email or web address] Information not available 05/26/2024 Do You Have Smoke And Carbon Monoxide Detectors In Your Home? Yes [email or web address] Information not available 05/26/2024 How Much Tobacco Do You Smoke? No [email or web address] Information not available 05/26/2024 Do You Use Sunscreen Routinely? Yes Information not available 05/26/2024 Has Tobacco Cessation Counseling Been Provided? No [email or web address] Information not available 05/26/2024 Have You Used IV Drugs? No [email or web address] Information not available 05/26/2024 Do You Have Difficulty Walking Or Climbing Stairs? No [email or web address] Information not available 05/26/2024 Sex: Unknown Functional Status Question Answer Note LastModified by Organizat ion Details LastModified Time Do you use any illicit or recreational drugs? No [email or web address] Information not available 05/26/2024 Do you or have you ever used any other forms of tobacco or nicotine? No [email or web address] Information not available 05/26/2024 What is your level of alcohol consumption? None [email or web address] Information not available 10/01/2024 Are you able to walk? YESWOREST [email or web address] Information not available 05/26/2024 Are you able to care for yourself? 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 No [email or web address] Information not available 05/26/2024 What is your exercise level? Moderate Information not available 05/26/2024 Mental Status Question Answer Note LastModified by Organization D etails LastModified Time Do you feel stressed (tense, restless, nervous, or anxious, or unable to sleep at night)? [id number] [email or web address] Information not available 05/26/2024 Family History Relationship Description Onset Age of this Age Resolved Age Notes LastModified by Organization Details LastModified Time Unspecified Relation Family history unknown [email or web address] Not available 2024 13:56:16 Mother Hypertensive disorder [email or web address] Not available 05/26 14:59:35 Father Malignant tumor of pharynx [email or web address] Not available 2024 13:56:16 Father Malignant neoplasm of lung [email or web address] Not available 05/26 15:00:01 Medical History Condition Response Allergies (Food, seasonal, environmental ) N Other N Breast Cancer N Drug/Latex Allergies/Reactions N Blood Transfusion N Dermatologic Disorders N Lung Disease N Defects or Inherited Disease N Breast Problem N Gestational Diabetes N Hematologic disorders N Anesthesia Complications N History of STI N Deep Vein Thrombosis N Polycystic ovary syndrome N Anxiety Disorder N Autoimmune disease N Arthritis N Infertility N Polyps N Acid Reflux (GERD) N History of abnormal pap N Cancer N Stroke N Varicosities N Neurologic/Epilepsy N Endometriosis N High Cholesterol N Headaches N Fibromyalgia N Kidney Disease N Heart Problems N Kidney or Bladder Problems Y Thyroid Problems N GI Problems N Eating Disorder N Anemia N Art (IVF or FET) N Psychiatric Illness N Ovarian Cancer N Diabetes N Pulmonary (TB, Asthma) N Hepatitis/Liver Disease N No Past Medical History Y Eczema N Urinary Tract Infection Y Abuse/Domestic Violence N Asthma N Trauma/Violence N Depression/ depression N Heart Disease N Pre-Eclampsia N Hypertension N Osteoporosis N Thrombophilias N Gynecological History Statement/Question Response Flow Moderate Date of Last Mammogram Date of LMP 09/03/2024 N On BCP's at Conception? N STIs/STDs N Was last menstrual period normal Y HPV Vaccine Y Duration of Flow (days) 5 Current Control Method Hysterectom y Age at First Child 24 Are cycles usually normal Y Sexually Active? Y N/A Menses Monthly Y Date of DEXA bone scan Age of first menstrual cycle 17 Date of Last Pap Smear 11/22/2022 Sexual Problems? N LMP Definite Desired Control Method N/A N Obstetrics History GPAL:G 2 P 2 0 0 2 Type Value Full Term 2 Living 2 Total 2 Past Encounters Encounter ID Performer Location Encounter Start Date Encounter Closed Date Diagnosis/Indication Diagnosis SNOMED-CT Code Diagnosis ICD10 Code Diagnosis Note [id number] Home Brannon MD [facility] [address] [address] 05/26/2024 14:28:05 05/26/2024 17:43:58 Pain in pelvis 46552804 R10.2 39-year-ol d female with a pressure in the pelvis. It has been present for about 6 months. It is a painful pressure on the left side. She has stopped taking her oral contracept jori pills about that time. It does not radiate. It has gotten worse over time. Patient is known to have history of kidney stones. After she discontinu ed her oral control pills her menses became very heavy. She has accidents. She gets blood on her bedding and clothing. It disrupts her lifestyle. She is unable to complete her activities of daily living with the bleeding patient had a CT scan recently that did show some dilation of renal veins on the left side. There is a question of pelvic congestion syndrome. Discussed CT results and described the significan ce of those results to the patient. Talked about pelvic congestion syndrome. Talked endometrio sis. To obtain pelvic ultrasound have the patient back to discuss those results in to perform a treatment plan. Spent over 30 minutes In total on the patient's care Menorrhagia [id number] N9 2.0 [id number] Home Brannon MD [facility] [address] [address] 05/27/2024 13:52:34 05/27/2024 15:53:19 Pain in pelvis 79632243 R10.2 39-year-ol d female with a pressure in the pelvis. It has been present for about 6 months. It is a painful pressure on the left side. She has stopped taking her oral contracept jori pills about that time. It does not radiate. It has gotten worse over time. Patient is known to have history of kidney stones. After she discontinu ed her oral control pills her menses became very heavy. She has accidents. She gets blood on her bedding and clothing. It disrupts her lifestyle. She is unable to complete her activities of daily living with the bleeding patient had a CT scan recently that did show some dilation of renal veins on the left side. There is a question of pelvic congestion syndrome. Discussed CT results and described the significan ce of those results to the patient. Talked about pelvic congestion syndrome. Talked endometrio sis. To obtain pelvic ultrasound have the patient back to discuss those results in to perform a treatment plan. Spent over 30 minutes In total on the patient's care [id number] Home Brannon MD [place] [facility] [address],[facility] [place] [address] 07/10/2024 16:17:58 07/10/2024 17:28:35 Pelvic congestion syndrome 35870190 N94.89 39-year-ol d female with severe pelvic pain. Patient shows imaging consistent with pelvic congestion syndrome. Her symptoms are consistent with pelvic congestion syndrome. We talked about treatment. She has considerin g robotic assisted total hysterecto my with bilateral salpingect arpit. She will likely proceed. I talked about the procedure in detail. I spent more than 30 minutes total on her care. The patient understand s the procedure. The procedure was described to the patient in great detail. the patient also understand s the risks. The risks were also explained in detail. She understand s that injuries May occur during surgery. She understand s these injuries can result in hospitaliz ation, more surgery, and severe illness. She understand s there is risk of hemorrhage and infection. [id number] Home Brannon MD [facility] [address],[place] [address] 09/15/2024 10:10:23 09/15/2024 11:18:10 Pain in pelvis 13846975 R10.2 Pelvic con gestion syndrome 58407107 N94.89 this patient is a 39-year-ol d female with pelvic congestion syndrome and pelvic pain. We agreed to perform total laparoscop ic hysterecto my bilateral salpingect arpit. She understand s the risks, benefits, and alternativ es. She has completed the informed consent process and is ready to proceed. [id number] Home Brannon MD [place] [facility] [address],[facility] [place] [address] 10/01/2024 13:47:31 10/01/2024 14:56:16 Postoperative care [id number] Z48.89 female Patient presents for postop follow-up. She is 1 week postop from a total laparoscop ic hysterecto my bilateral salpingect arpit with left oophorecto my. She has no complaints . Her incisions are clean dry and intact. She is recovering normally. She will follow-up as needed. [id number] Home Brannon MD [place] [facility] [address],[place] [address] 11/05/2024 18:07:31 11/06/2024 02:35:59 Urinary symptoms [id number] R39.9 this patient is a 39-year-ol d female with urinary symptoms. She also reports foul-smell ing vaginal discharge and vulvar irritation . She has had numerous urinary tract infections historical ly. She has a positive urine dip today she has dysuria, urgency, frequency. She also had a grade discharge that is odorous. There is some intermitte nt vulvar irritation and itching. We agreed to treat for urinary tract infection and bacterial vaginosis/ vaginitis. The vulva and distal vagina was examined. It appears normal. Normal. We discussed treatment. We discussed the risks, benefits, and alternativ es to each of the treatments . Three treatments were provided For 3 separate problems. We talked about instructio ns Bacterial vaginosis [id number] N76.0 [id number] Home Brannon MD [place] [address],[place] [address] 11/19/2024 13:56:09 11/19/2024 14:59:14 Pain in pelvis [id number] R10.2 Urinary symptoms [id number] R39.9 Vaginitis [id number] N76.0 Health Concerns Section Related Observation LastModified by Organization Detai ls LastModified Time None Recorded Concern Status LastModified by Organization Details LastModified Time None Recorded Advance Directives Directive None Recorded Payers Encounter Date Sequence Insurance Name Policy Number Policy [place] Covered Member ID [place] Member ID Guarantor Name 07/10/2024 1 [facility] (MEDICAID HMO) [id number] Arabella Eaves [id number] Araeblla Eaves 09/15/2024 1 [facility] (MEDICAID HMO) [id number] Arabella Eaves [id number] Arabella Eaves 10/01/2024 1 [facility] (MEDICAID HMO) [id number] 0003 Arabella Christianson [id number] Arabella Christianson 11/05/2024 1 [facility] (MEDICAID HMO) [id number] 0003 Arabella Christianson [id number] Arabella Christianson 11/19/2024 1 [facility] (MEDICAID HMO) [id number] 0003 Arabella Christianson [id number] Arabella Christianson Notes Date Note Type Note Provider Name and Address Organization Details Recorded Time 07/10/2024 text/html 39-year-old fema le with severe pelvic pain. Patient shows imaging consistent with pelvic congestion syndrome. Her symptoms are consistent with pelvic congestion syndrome. We talked about treatment. She has considering robotic assisted total hysterectomy with bilateral salpingectomy. She will likely proceed. I talked about the procedure in detail. I spent more than 30 minutes total on her care. The patient understands the procedure. The procedure was described to the patient in great detail. the patient also understands the risks. The risks were also explained in detail. She understands that injuries May occur during surgery. She understands these injuries can result in hospitalization, more surgery, and severe illness. She understands there is risk of hemorrhage and infection. Home Brannon MD [address], [place], [address], [facility] 07/10/2024 17:27:09 09/15/2024 text/html this patient is a 39-year-old female with pelvic pain and pelvic congestion syndrome. We have agreed to perform total laparoscopic hysterectomy bilateral salpingectomy. The patient understands the procedure. The procedure was described to the patient in great detail. the patient also understands the risks. The risks were also explained in detail. She understands that injuries May occur during surgery. She understands these injuries can result in hospitalization, more surgery, and severe illness. She understands there is risk of hemorrhage and infection. Home Brannon MD [address], [place], [address], [facility] 09/15/2024 11:15:39 10/01/2024 text/html female Patient presents for postop follow-up. She is 1 week postop from a total laparoscopic hysterectomy bilateral salpingectomy with left oophorectomy. She has no complaints. Her incisions are clean dry and intact. She is recovering normally. She will follow-up as needed. Home Brannon MD [address], [place], [address], [facility] 10/01/2024 14:44:06 11/05/2024 text/html this patient is a 39-year-old female with urinary symptoms. She also reports foul-smelling vaginal discharge and vulvar irritation. She has had numerous urinary tract infections historically. She has a positive urine dip today she has dysuria, urgency, frequency. She also had a grade discharge that is odorous. There is some intermittent vulvar irritation and itching. We agreed to treat for urinary tract infection and bacterial vaginosis/ vaginitis. The vulva and distal vagina was examined. It appears normal. Normal. We discussed treatment. We discussed the risks, benefits, and alternatives to each of the treatments. Three treatments were provided For 3 separate problems. We talked about instructions Home Brannon MD [address], [place], [address], [facility] 11/05/2024 19:14:02 11/19/2024 text/html 39-year-old harry khalil presents for urinary symptoms and vulvar irritation. Patient has white thick vaginal discharge. She has vulvar irritation. Patient has history of urinary tract infection. She has been treated with antibiotics in the past and developed yeast infection. We will treat for yeast infection. She was prescribed Diflucan. She was given precautions, instructions. I told of the risks, benefits, and alternatives to medication and treatment. Patient's blood in your on urine dip. She has a kidney stone also. She also has urinary symptoms. We agreed to treat with antibiotics. We we will change antibiotics from the previous antibiotic used. She understands the risks, benefits, and alternatives. She was given precautions and instructions. To medications were prescribed. She was examined. The vulva and distal vagina appeared erythematous. There is white vaginal discharge. Home Brannon MD [address], [place], [address], [facility] 11/19/2024 14:44:52 OBGyn Episode Ob Episode Information Episode Created Date Number of Fetuses Patient Bloodtype Patient rh Status Prepregnancy Weight lbs Domestic Partner Domestic Partner Phone Father Name Coconut Candy Maker Status 05/26/20 24 1 CLOSED Fetus Data First Name Last Name Admitted to NICU Weight (g) Sex Living Outcome Pediatric Complications Fetus ID Race Codes Race Delivery Type 3883.65 4704 M Full Term [id number] Vaginal Delivery Bahman Calculation Initial Bahman Date Initial Exam Date Initial Exam Provider Initial Ultrasound Date Last Menstrual Period Date Ultra Sound Weeks Gestation 0 Eighteen To Twenty Week Bahman Update Ultra Sound Date Fundal Height At Umbil Quickening Date Ultra Sound Latest Weeks Gestation Final Bahman Confirmed By Final Bahman Confirmed Date Final Bahman Date Ultra Sound Latest Days Gestation 0 0 Menstrual History Last Menstrual Date Menses Monthly On Bcp Conception Prior Menses Frequency Hcg Plus Date Menarche Onset Age Delivery Information Delivery Date Delivery Type Labor Anesthesia Weeks Gestation Incision Type Labor Labor Length Hrs Delivered By Post Complications Tubal Sterilization Discharge Date Comments 0 39 Discharge Information Feeding Method Contraceptive Method Maternal HG B and HCT Levels Ob Episode Information Episode Created Date Number of Fetuses Patient Bloodtype Patient rh Status Prepregnancy Weight lbs Domestic Partner Domestic Partner Phone Father Name Coconut Candy Maker Status 05/26/20 24 1 CLOSED Fetus Data First Name Last Name Admitted to NICU Weight (g) Sex Living Outcome Pediatric Complications Fetus ID Race Codes Race Delivery Type 4195.72 6 M Full Term [id number] Vaginal Delivery Bahman Calculation Initial Bahman Date Initial Exam Date Initial Exam Provider Initial Ultrasound Date Last Menstrual Period Date Ultra Sound Weeks Gestation 0 Eighteen To Twenty Week Bahman Update Ultra Sound Date Fundal Height At Umbil Quickening Date Ultra Sound Latest Weeks Gestation Final Bahman Confirmed By Final Bahman Confirmed Date Final Bahman Date Ultra Sound Latest Days Gestation 0 0 Menstrual History Last Menstrual Date Menses Monthly On Bcp Conception Prior Menses Frequency Hcg Plus Date Menarche Onset Age Delivery Information Delivery Date Delivery Type Labor Anesthesia Weeks Gestation Incision Type Labor Labor Length Hrs Delivered By Post Complications Tubal Sterilization Discharge Date Comments 4 40 Discharge Information Feeding Method Contraceptive Method Maternal HG B and HCT Levels
--- OUTSIDE RECORDS SUMMARY | 2025-03-17 15:09 | XMS_ITS | Clinical Summary ---
Author Organization [facility] Address [address] [place] [address] Care Team Providers Care Montessori Preschool Teacher Name Role Phone Jamal Gross MD Primary Care Provider Source Comments [facility],non-[facility] Affiliates and Associated Physician Practices is amultiple site organization consisting of ambulatory clinics and hospital sitesin [place], [place], [place] and [place]. This disclosure is being madepursuant to the Care Everywhere program and may not contain all information available regarding this patient. Last updated 18.[facility] Allergies Active Allergy Reactions Criticality Noted Date Comments Miconazole Itching,Swelling 05/19/2020 Medications * Be aware that medications may not be up to date on this document. Alwaysverify current medications with the patient. cyanocobalamin (Vitamin B-12) 100 MCG tablet Take 1 (one) tablet by mouth once daily Active cetirizine (ZyrTEC) 10 MG tablet Active Probiotic Product (PROBIOTIC/PREBI OTIC/CRANBERRY PO) Active Social History Tobacco Use Types Packs/Day Years Used Date Smoking Tobacco: Never Smokeless Tobacco: Never Tobacco Cessation:Counseling Given: No Comments No Sex and Gender Information Value Date Recorded Sex Assigned at Female 05/10/2023 2:08 PM CDT Legal Sex Female 9:34 PM CDT Gender Identity Female 05/10/2023 2:08 PM CDT Sexual Orientation Straight 05/10/2023 2: 08 PM CDT Last Filed Vital Signs Vital Sign Reading Time Taken Comments Blood Pressure 112/79 05/14/2024 10:38 AM CDT Pulse 93 05/14/2024 10:38 AM CDT Temperature 36.8 C (98.3 F) 05/14/2024 10:38 AM CDT Respiratory Rate - - Oxygen Saturation 98% 05/14/2024 10:38 AM CDT Inhaled Oxygen Concentration - - Weight 71.5 kg (157 lb 9.6 oz) 05/14/2024 10:38 AM CDT Height 167.6 cm (5' 6) 05/14/2024 10:38 AM CDT Body Mass Index 25.44 05/14/2024 10:38 AM CDT Plan of Treatment Health Maintenance Due Date Last Done Comments PAP SMEAR 1985 HIV SCREENING 2002 HEPATITIS C SCREENING 04/23/2005 DTAP/TDAP/TD VACCINES (1 - Tdap) 2006 HEPATITIS B VACCINE (1 of 3 - 19+ 3-dose series) 2006 COVID-19 VACCINE (1 - 2023-2 5 season) 2024 DEPRESSION SCREENING 10/22/2024 INFLUENZA VACCINE (Season Ended) 2025 ZOSTER VACCINE (1 of 2) 2037 HIB VACCINE Aged Out No longer eligi ble based on patient's age to complete this topic HPV VACCINE Aged Out No longer eligi ble based on patient's age to complete this topic MENINGOCOCCAL (Group B) VACC INE SHARED DECISION-MAKING Aged Out No longer eligibl e based on patient's age to complete this topic MENINGOCOCCAL GROUPS A/C/Y/W VACCINE Aged Out No longer eligible b ased on patient's age to complete this topic PNEUMOCOCCAL VACCINE Aged Out No long er eligible based on patient's age to complete this topic Insurance * Guarantor: Sathya Arellano Account Type Relation to Patient Date of Phone Billing Address Personal/Family Self 1985 [address] [place] [address] [facility] SELF PAY NO INSURANCE Member Subscriber Plan / Payer (Ef fective for All Dates) Name:Sathya Arellano Member ID:Not on file Relation to Subscriber:Not on file Name:SATHYA ARELLANO Subscriber ID:Not on file (Home) Address: [address] [place] [id number] Payer ID:Not on file Group ID:Not on file Type:Self Pay Address: [place], [place] Care Teams Montessori Preschool Teacher Relationship Specialty Start Date End Date Jamal Gross MD [address] [place] [address] PCP - General Family Medicine 12/12/23
[2025-03-17 15:10] VITALS: BP 126/83; PULSE 92; RESP 20; TEMP 36.6; O2SAT 100
--- NOTE | 2025-03-17 15:12 | ED_ITS ---
HPI - Extremity Injury (Upper) General Chief Complaint: Extremity Injury, Upper Stated Complaint: shoulder injury Time Seen by Provider: 03/17/25 15:12 Source: patient Mode of arrival: ambulatory Limitations: no limitations Related Data Home Medications ?Medication ?Instructions ?Recorded ?Confirmed ?Last Taken ?Type cetirizine 10 mg capsule (All Day 10 mg PO DAILY PRN allergies 06/13/23 09/11/24 Unknown History Allergy (cetirizine)) cranberry-vit 1 cap PO DAILY 09/11/24 09/11/24 Unknown History C-B.coag-FOS-L.acid-L.rham 250 mg-30 mg-39.5 mg capsule vitamin B complex 1 tablet PO DAILY 09/11/24 09/11/24 Unknown History Allergies Allergy/AdvReac Type Severity Reaction Status Date / Time fluconazole (From Diflucan) Allergy Redness of Verified 03/17/25 15:10 Skin hydromorphone (From Dilaudid) AdvReac Agitated Verified 03/17/25 15:10 PMFSH Past Medical History Medical History UTI (urinary tract infection) Surgical History Surgical History History of appendectomy Social History Social History Smoking status: Never smoker Substance use: never Living arrangements: with family Spiritual care concerns: No Course Vital Signs Vital signs: Vital Signs Temperature 36.6 C 03/17/25 15:10 Pulse Rate 92 03/17/25 15:10 Respiratory Rate 03/17/25 15:10 Blood Pressure 126/83 03/17/25 15:10 Pulse Oximetry 100 03/17/25 15:10 Oxygen Delivery Room Air 03/17/25 15:10 Temperature 36.6 C 03/17/25 15:10 Pulse Rate 92 03/17/25 15:10 Respiratory Rate 20 03/17/25 15:10 Blood Pressure 126/83 03/17/25 15:10 Pulse Oximetry 100 03/17/25 15:10 Oxygen Delivery Room Air 03/17/25 15:10 MDM - Extremity Injury (Upper) Imaging Data Radiologist's impression: Impressions Shoulder X-Ray 03/17/25 15:40 IMPRESSION: Fracture in the area of the greater tuberosity. Follow-up advised. Discharge Plan Discharge Clinical Impression: Fracture of shoulder Patient Disposition: Home Condition: Stable Instructions: Arm Fracture in Adults (DC) Additional Instructions: Return if symptoms are worsening , call dr mary for appointment, take Tylenol, ibuprofen as as needed for aches and pain, continue home medications. Patient Language: Georgian Prescriptions: No Action All Day Allergy (cetirizine) 10 mg capsule 10 mg PO DAILY PRN (Reason: allergies) vitamin B complex Tablet 1 tablet PO DAILY cran-C-B.coag-FOS-L.acid-L.rha 250-30-39.5 mg Capsule 1 cap PO DAILY oxycodone-acetaminophen 5-325 mg tablet 1 tablet PO Q4H PRN (Reason: pain) Qty: 25 0RF Follow-up/Referrals: Navdeep Ramsey MD [Physician] - 03/18/25 Jamal Gross M.D. [Primary Care Provider] -
--- OUTSIDE RECORDS SUMMARY | 2025-03-17 15:56 | XMS_ITS | Clinical Summary ---
Author Organization [facility] Address [address] [place] [address] Care Team Providers Care Chief Pharmacist Name Role Phone Jamal Gross MD Primary Care Provider Source Comments [facility],non-[facility] Affiliates and Associated Physician Practices is amultiple site organization consisting of ambulatory clinics and hospital sitesin [place], [place], [place] and [place]. This disclosure is being madepursuant to the Care Everywhere program and may not contain all information available regarding this patient. Last updated 18.[facility] Allergies Active Allergy Reactions Criticality Noted Date [...] patient's age to complete this topic Insurance [facility] SELF PAY NO INSURANCE Member Subscriber Plan / Payer (Ef fective for All Dates) Name:Sathya Arellano Member ID:Not on file Relation to Subscriber:Not on file Name:SATHYA ARELLANO Subscriber ID:Not on file (Home) Address: [address] [place] [phone] Payer ID:Not on file Group ID:Not on file Type:Self Pay Address: [place], [place] Care Teams Chief Pharmacist Relationship Specialty Start Date End Date Jamal Gross MD [address] [place] [address] PCP - General Family Medicine 12/12/23
== END 2025-03-17 16:05 | disposition home or self-care (01) ==
PROVIDERS: Emergency Provider Emergency Medicine; PCP Family Medicine
DX: S42.251A Displaced fracture of greater tuberosity of right humerus, initial encounter for closed fracture (principal); W09.8XXA Fall on or from other playground equipment, initial encounter
CPT/HCPCS: 73030; 99284; A4565

== ENCOUNTER 2025-05-05 08:36 | Outpatient (CLI) | payer OTHER, SELFPAY ==
--- NOTE | ~2025-05-05 | XR_ITS ---
Right Shoulder Technique: AP and scapular Y views were obtained. Clinical History: Fracture follow-up COMPARISON: 03/17/2025 Findings: Routine interval partial healing of fracture the greater tuberosity of the humerus. The gle nohumeral and acromioclavicular joint spaces are preserved. Soft tissues are unremarkable. Impression: Routine continued interval healing of fracture of the greater tuberosity of the humerus. Reviewed, dictated and finalized at location M. Impression: Routine continued interval healing of fracture of the greater tuberosity of the humerus.
--- OUTSIDE RECORDS SUMMARY | 2025-05-05 08:45 | XMS_ITS | Clinical Summary ---
Author Organization [facility] Address [address] [place] [address] Care Team Providers Care Subway Train Driver Name Role Phone Jamal Gross MD Primary Care Provider Source Comments [facility],non-owned Affiliates and Associated Physician Practices is amultiple site organization consisting of ambulatory clinics and hospital sitesin [place], [place], [place] and [place]. This disclosure is being madepursuant to the Care Everywhere program and may not contain all information available regarding this patient. Last updated 18.[facility] Allergies Active Allergy Reactions Criticality Noted Date [...] Health Maintenance Due Date Last Done Comments HIV SCREENING 2002 HEPATITIS C SCREENING 04/23/2005 DTAP/TDAP/TD VACCINES (1 - Tdap) 2006 HEPATITIS B VACCINE (1 of 3 - 19+ 3-dose series) 2006 PAP SMEAR 2008 HPV VACCINE (1 - 3-dose SCDM series) 2014 COVID-19 VACCINE ( - 2023-2 5 season) 2024 DEPRESSION SCREENING 10/22/2024 INFLUENZA VACCINE (#1) 2025 ZOSTER VACCINE (1 of 2) 2037 [...] patient's age to complete this topic Insurance [facility] SELF PAY NO INSURANCE Member Subscriber Plan / Payer (Ef fective for All Dates) Name:Sathya Arellano Member ID:Not on file Relation to Subscriber:Not on file Name:SATHYA ARELLANO Subscriber ID:Not on file (Home) Address: [address] [place] [phone] Payer ID:Not on file Group ID:Not on file Type:Self Pay Address: [place], [place] Care Teams Subway Train Driver Relationship Specialty Start Date End Date Jamal Gross MD [address] [place] [address] PCP - General Family Medicine 12/12/23
--- OUTSIDE RECORDS SUMMARY | 2025-05-05 08:45 | XMS_ITS | Data Portability ---
Author Organization [facility] Address [address] [place] [address] Care Team Providers Care Contour Stitcher Name Role Phone JENNIFER MARCIO Primary Care Provider Assessment No assessment recorded. Plan of Treatment Reminders Order Date Submit Date Provider Last Modified By Organization Details Last Modified Time Details Appointments None recorded. Lab urinalysis, dipstick 2024 025 [address], [address], [place], [address], 14:42:37 urinalysis, dipstick [address] [facility] [address], [address], [place], [address], 19:05:41 Referral None recorded. Procedures None recorded. Surgeries None recorded. Imaging None recorded. Medication Orders Bactrim DS 800 mg-160 mg tablet 2024 025 BENITO [facility], [address] [place], [address], 5 14:44:59 fluconazole 150 mg tablet 2024 025 BENITO [facility], [address] [place], [address], 5 14:42:55 Cipro 500 mg tablet 2024 025 tabner1 [facility], [address] [place], [address], 5 14:07:32 metronidazo le 0.75 % (37.5 mg/5 gram) vaginal gel 2024 025 tabner1 [facility], [address] [place], [address], 5 14:07:19 Diflucan 150 mg tablet 2024 025 BENITO [facility], [address] [place], [address], 19:11:14 Patient TargetsNo targets recorded. Patient InstructionsNo [...] or negat jori statu s. Not Available [facility] (Lab) [address] [place], [address], 11/06/2024 22:07:17 11/05/1911/05/2024 WOMEN 'S HEALT H SWAB, KEYONNA kathe species, tma Negati ve negati ve Not Available [facility] (Lab) [address] [place], [address], 11/06/2024 22:07:17 11/05/19 25 11/05/2024 WOMEN 'S HEALT H SWAB, KEYONNA kathe glabrata, tma Negati ve negati ve Not Available [facility] (Lab) [address] [facility], [place], [address], 11/06/2024 22:07:17 11/05/19 25 11/05/2024 WOMEN 'S [...] Ampli ficat ion (TMA) . Not Available [facility] (Lab) [address], [place], [address], 11/06/2024 22:07:17 11/05/19 25 11/05/2024 CULTU RE: URINE result report SEE RESULT S BELOW Test: Cultu re: Urine Speci men Sourc e: Urine - Clean Catch Speci men Type: Urine Speci men Date: 2024 1756 Resul t Date: 20243 Resul t Statu s: Final resul t Abnor mal: No Resul ting Lab: [facility] [address] [facility] [address] Tel: CULTU RE ----- ----- ----- --- No growt h in 1 day (dete ction level of 10,00 0 colon ies / ml.) Not Available [facility] (Lab) [address] [place], [address], 11/06/2024 22:07:18 11/05/19 25 11/05/2024 urina lysis , dipst ick Leukocytes ++ Not Available Jose A khalil [address], [place], [address], 11/05/2024 18:54:55 11/05/19 25 11/05/2024 urina lysis , dipst ick Protein + Not Available [place] [address], [place], [address], 11/05/2024 18:54:55 11/05/19 25 11/05/2024 urina lysis , dipst ick pH 8 Not Available [place] [address], [place], [address], 11/05/2024 18:54:55 11/05/19 25 11/05/2024 urina lysis , dipst ick Blood +++ Not Available [place] [address], [place], [address], 11/05/2024 18:54:55 11/05/19 25 11/05/2024 urina lysis , dipst ick Specific [place] 1.000 Not Available [facility] [address], [place], [address], 11/05/2024 18:54:55 11/19/1911/19/2024 CULTU RE: URINE result report SEE RESULT S BELOW Test: Cultu re: Urine Speci men Sourc e: Urine - Clean Catch Speci men Type: Urine Speci men Date: 2024 1328 Resul t Date: 2024 0558 Resul t Statu s: Final resul t Abnor mal: No Resul ting Lab: [facility] [address] [facility] [address] Tel: CULTU RE ----- ----- ----- --- No growt h in 1 day (dete ction level of 10,00 0 colon ies / ml.) Not Available [facility] (Lab) [address], [place], [address], 11/21/2024 07:03:08 01/29/20 25 11/19/2024 WOMEN 'S HEALT H SWAB PLUS, KEYONNA bacterial vaginosis (bv), tma Negati ve negati ve Not Available [facility] (Lab) [address] [place], [address], 11/24/2024 17:37:07 11/19/19 25 11/19/2024 WOMEN 'S HEALT H SWAB PLUS, KEYONNA kathe species, tma Negati ve negati ve Not Available [facility] (Lab) [address] [facility], [place], [address], 11/24/2024 17:37:07 11/19/19 25 11/19/2024 WOMEN 'S HEALT H SWAB PLUS, KEYONNA kathe glabrata, tma Negati ve negati ve Not Available [facility] (Lab) [address] [facility], [place], [address], 11/24/2024 17:37:07 11/19/19 25 11/19/2024 WOMEN 'S HEALT H SWAB PLUS, KEYONNA trichomonas vaginalis, tma Negati ve negati ve Not Available [facility] (Lab) [address] [place], [address], 11/24/2024 17:37:07 11/19/19 25 11/19/2024 [facility] KEYONNA chlamydia trachomatis, PCR Negati ve negati ve Not Available [facility] (Lab) [address] [place], [address], 11/24/2024 17:37:07 11/19/19 25 11/19/2024 WOMEN 'S [...] ded in this panel . Not Available [facility] (Lab) [address], [place], [address], 11/24/2024 17:37:07 11/19/19 25 11/19/2024 urina lysis , dipst ick Leukocytes trace Not Available [facility] [address], [place], [address], 11/19/2024 14:10:00 11/19/19 25 11/19/2024 urina lysis , dipst ick Protein + Not Available [place] [address], [place], [address], 11/19/2024 14:10:00 11/19/19 25 11/19/2024 urina lysis , dipst ick pH 6 Not Available [place] [address], [place], [address], 11/19/2024 14:10:00 11/19/19 25 11/19/2024 urina lysis , dipst ick Blood +++ Not Available [place] [address], [place], [address], 11/19/2024 14:10:00 11/19/19 25 11/19/2024 urina lysis , dipst ick Specific [place] 1.005 Not Available [facility] [address], [place], [address], 11/19/2024 14:10:00 11/19/19 25 11/19/2024 urina lysis , dipst ick Appearance clear Not Available Nicholasvanita khalil [address], [place], [address], 11/19/2024 14:10:00 11/19/19 25 11/19/2024 urina lysis , dipst ick Color yellow Not Available [place] [address], [place], [address], 11/19/2024 14:10:00 09/24/20 24 09/24/2024 XR, abdom en + pelvi s No observ ation record ed. [address], [place], [address], 09/24/2024 11:42:33 Result Notes None recorded. Problems Name Problem SNOMED Code Status Onset Date Resolution Date Notes Provider Name and Address Organization Details Recorded Time History of calculus of kidney 875093588 Active Humaira sanchez, [facility] 14:55:43 Problem Notes None recorded. Procedures Surgical History Date Name Laterality Status Provider Name and Address Organization Details Recorded Time TOTAL HYSTERECTOMY, LAPAROSCOPIC, WITH BILATERAL SALPINGECTOMY (SURG) completed Home Brannon MD [address], [place], [address], [facility] 09/24/2024 21:15:43 024 ROBOTIC ASSISTED HYSTERECTOMY W/BILATERAL SALPINGO-OOPHORECT ARPIT (SURG) completed Graciela Valdez [facility] 09/24/2024 09:20:06 024 ROBOTIC ASSISTED HYSTERECTOMY W/BILATERAL SALPINGO-OOPHORECT ARPIT (SURG) completed Graciela Valdez [facility] 09/24/2024 11:39:18 024 ROBOTIC ASSISTED HYSTERECTOMY W/BILATERAL SALPINGO-OOPHORECT ARPIT (SURG) completed Graciela José Miguel [facility] 09/24/2024 11:38:36 023 Date of Last Pap Smear completed [facility] 05/26/2024 15:08:43 021 Cholecystectomy completed [facility] 05/26/2024 15:00:34 019 Appendectomy completed [facility] 05/26/2024 14:54:30 Imaging Results None recorded. Procedure Notes None recorded. Medical Equipment None Reported. Allergies Allergen ID Allergen Name Allergen Category Reaction Reaction Severity Criticality Documentation Date Start Date Code Code System Note Provider Name and Address Organization Details Recorded Time 68555 Monistat Simple Therapy medicatio n swelling severe Not available 05/26/2024 67780 72 RxNorm Brionna Coates [facility], [facility] 5 14:06:41 Medications Name Sig Start Date Stop [...] Updated DateTime 11/05/2024 162.56 cm 28 kg/m2 67128.56 g 126/86 mm[Hg] [facility] 11/05/2024 18:18:24 Date Recorded Body height Body mass index (BMI) Body weight Systolic And Diastolic Provider Name and Address Organization Details Last Updated DateTime 11/19/2024 162.56 cm 28 kg/m2 94058.56 g 115/74 mm[Hg] [facility] 11/19/2024 14:05:55 Date Recorded Body height Body mass index (BMI) Body weight Systolic And Diastolic Provider Name and Address Organization Details Last Updated DateTime 07/10/2024 162.56 cm 27.6 kg/m2 76580.37 g 118/77 mm[Hg] [facility] 07/10/2024 16:42:42 Date Recorded Body height Body mass index (BMI) Body weight Systolic And Diastolic Provider Name and Address Organization Details Last Updated DateTime 09/15/2024 162.56 cm 28 kg/m2 55063.56 g 117/78 mm[Hg] Brionna Lujaner [facility] 09/15/2024 10:43:15 Date Recorded Body height Body mass index (BMI) Body weight Systolic And Diastolic Provider Name and Address Organization Details Last Updated DateTime 10/01/2024 162.56 cm 27.3 kg/m2 57466.19 g 115/79 mm[Hg] Brionna Jaxon [facility] 10/01/2024 14:00:46 Social History Question Answer Notes LastModified by Organizat ion Details LastModified Time Tobacco Smoking Status Never Smoker Humaira sanchez, [facility] 05/26/2024 15:00:23 If You Are , What Was Your Level Of Alcohol Consumption Prior To ? Occasional [email or web address] Information not available 05/26/2024 Are You Blind Or Do You Have Difficulty Seeing? No [email or web address] Information n ot available 05/26/2024 What Is Your Level Of Caffeine Consumption? Occasional [email or web address] Information not available 05/26/2024 How Much Tobacco Do You Chew? None [email or web address] Information not available 05/26/2024 In The 14 Days Before Symptom Onset, Have You Had Close Contact With A Laboratory-confirm ed COVID-19 While That Case Was Ill? No [email or web address] Information n ot available 05/26/2024 In The 14 Days Before Symptom Onset, Have You Had Close Contact With A Person Who Is Under Investigation For COVID-19 While That Person Was Ill? No [email or web address] Information not available 05/26/2024 Have You Been To An Area Known To Be High Risk For COVID-19? No [email or web address] Information not available 05/26/2024 Are You Deaf Or Do You Have Serious Difficulty Hearing? No [email or web address] Information not available 05/26/2024 What Type Of Diet Are You Following? REGULAR [email or web address] Information n ot available 05/26/2024 What Is The Highest Grade Or Level Of School You Have Completed Or The Highest Degree You Have Received? PT34864-5 [email or web address] Information not available 05/26/2024 Are There Any Guns Present In Your Home? No [email or web address] Information not available 05/26/2024 Do You Use Protection During Sex? No [email or web address] Information not available 05/26/2024 Do You Use Your Seat Belt Or Car Seat Routinely? Yes [email or web address] Information not available 05/26/2024 Do You Have Smoke And Carbon Monoxide Detectors In Your Home? Yes [email or web address] Information not available 05/26/2024 How Much Tobacco Do You Smoke? No [email or web address] Information not available 05/26/2024 Do You Use Sunscreen Routinely? Yes [email or web address] Information not available 05/26/2024 Has Tobacco Cessation Counseling Been Provided? No [email or web address] Information not available 05/26/2024 Have You Used IV Drugs? No [email or web address] Information not available 05/26/2024 Do You Have Difficulty Walking Or Climbing Stairs? No [email or web address] Information not available 05/26/2024 Sex: Unknown Functional Status Question Answer Note LastModified by Organizat ion Details LastModified Time Do you use any illicit or recreational drugs? No [email or web address] Information not available 05/26/2024 Do you or have you ever used any other forms of tobacco or nicotine? No [email or web address] Information not available 05/26/2024 What is your level of alcohol consumption? None [email or web address] Information not available 10/01/2024 Are you able to walk? YESWOREST [email or web address] Information not available 05/26/2024 Are you able to care for yourself? Yes [email or web address] Information not available 05/26/2024 What is your occupation? Stay at home mom [email or web address] Information not available 05/26/2024 Do you have difficulty dressing or bathing? No [email or web address] Information not available 05/26/2024 What is your exercise level? Moderate Information not available 05/26/2024 Mental Status Question Answer Note LastModified by Organization D etails LastModified Time Do you feel stressed (tense, restless, nervous, or anxious, or unable to sleep at night)? [id number] [email or web address] Information not available 05/26/2024 Family History Relationship Description Onset Age of this Age Resolved Age Notes LastModified by Organization Details LastModified Time Unspecified Relation Family history unknown [email or web address] Not available 2024 13:56:16 Mother Hypertensive disorder [email or web address] Not available 05/26 14:59:35 Father Malignant tumor of pharynx [email or web address] Not available 2024 13:56:16 Father Malignant neoplasm of lung [email or web address] Not available 05/26 15:00:01 Medical History Condition Response Allergies (Food, seasonal, environmental ) N Other N Drug/Latex Allergies/Reactions N Blood Transfusion N Breast Cancer N Dermatologic Disorders N Lung Disease N Defects or Inherited Disease N Breast Problem N Gestational Diabetes N Hematologic disorders N Anesthesia Complications N History of STI N Deep Vein Thrombosis N Polycystic ovary syndrome N Anxiety Disorder N Autoimmune disease N Arthritis N Polyps N Infertility N Acid Reflux (GERD) N History of abnormal pap N Cancer N Varicosities N Stroke N Neurologic/Epilepsy N Endometriosis N High Cholesterol N Fibromyalgia N Headaches N Kidney Disease N Heart Problems N Thyroid Problems N Kidney or Bladder Problems Y GI Problems N Eating Disorder N Anemia [...] Code Diagnosis Note [id number] Home Brannon MD [place] [address] [address] 05/26/2024 14:28:05 05/26/2024 17:43:58 Pain in pelvis 29721577 R10.2 39-year-ol d female with a pressure [...] In total on the patient's care Menorrhagia 811663508 N9 2.0 [id number] Home Brannon MD [place] [address] [address] 05/27/2024 13:52:34 05/27/2024 15:53:19 Pain in pelvis 81387501 R10.2 39-year-ol d female with a pressure [...] minutes In total on the patient's care [id number] Home Brannon MD [place] [address] [address] 07/10/2024 16:17:58 07/10/2024 17:28:35 Pelvic congestion syndrome 31452578 N94.89 39-year-ol d female with severe pelvic [...] there is risk of hemorrhage and infection. [id number] Home Brannon MD [place] [address],[facility] [place] [address] 09/15/2024 10:10:23 09/15/2024 11:18:10 Pain in pelvis 04939130 R10.2 Pelvic con gestion syndrome 61763160 N94.89 this patient is a 39-year-ol d female with pelvic congestion syndrome and pelvic pain. We agreed to perform total laparoscop ic hysterecto my bilateral salpingect arpit. She understand s the risks, benefits, and alternativ es. She has completed the informed consent process and is ready to proceed. [id number] Home Brannon MD [place] [address],[facility] [place] [address] 10/01/2024 13:47:31 10/01/2024 14:56:16 Postoperative care [id number] Z48.89 female Patient presents for postop follow-up. She is 1 week postop from a total laparoscop ic hysterecto my bilateral salpingect arpit with left oophorecto my. She has no complaints . Her incisions are clean dry and intact. She is recovering normally. She will follow-up as needed. [id number] Home Brannon MD [place] [address],[facility] [place] [address] 11/05/2024 18:07:31 11/06/2024 02:35:59 Urinary symptoms 022463728 R39.9 this patient is a 39-year-ol d [...] talked about instructio ns Bacterial vaginosis 4197 10571 N76.0 [id number] Home Brannon MD [place] [address],[facility] [place] [address] 11/19/2024 13:56:09 11/19/2024 14:59:14 Pain in pelvis 72847855 R10.2 Urinary symptoms 9769800 08 R39.9 Vaginitis 77397201 N76.0 Health Concerns Section Related Observation LastModified by Organization Detai ls LastModified Time None Recorded Concern Status LastModified by Organization Details LastModified Time None Recorded Advance Directives Directive None Recorded Payers Insurance Date Sequence Insurance Name Policy Number Policy [place] Covered Member ID [place] Member ID Guarantor Name 11/19/2024 1 [facility] (MEDICAID HMO) [id number] Arabella Christianson [id number] Arabella Christianson Notes Date Note Type Note [...] infection. Home Brannon MD [address], [place], [address], [facility] 07/10/2024 17:27:09 09/15/2024 text/html this patient [...] infection. Home Brannon MD [address], [place], [address], [facility] 09/15/2024 11:15:39 10/01/2024 text/html female Patient presents for postop follow-up. She is 1 week postop from a total laparoscopic hysterectomy bilateral salpingectomy with left oophorectomy. She has no complaints. Her incisions are clean dry and intact. She is recovering normally. She will follow-up as needed. Home Brannon MD [address], [place], [address], [facility] 10/01/2024 14:44:06 11/05/2024 text/html this patient [...] instructions Home Brannon MD [address], [place], [address], [facility] 11/05/2024 19:14:02 11/19/2024 text/html 39-year-old harry [...] discharge. Home Brannon MD [address], [place], [address], [facility] 11/19/2024 14:44:52 OBGyn Episode Ob Episode Information Episode Created Date Number of Fetuses Patient Bloodtype Patient rh Status Prepregnancy Weight lbs Domestic Partner Domestic Partner Phone Father Name Food Safety Manager Status 05/26/20 24 1 CLOSED Fetus Data First Name Last Name Admitted to NICU Weight (g) Sex Living Outcome Pediatric Complications Fetus ID Race Codes Race Delivery Type 3883.65 4704 M Full Term [id number] Vaginal Delivery Bahman Calculation Initial Bahman Date [...] Domestic Partner Domestic Partner Phone Father Name Food Safety Manager Status 05/26/20 24 1 CLOSED Fetus Data First Name Last Name Admitted to NICU Weight (g) Sex Living Outcome Pediatric Complications Fetus ID Race Codes Race Delivery Type 4195.72 6 M Full Term [id number] Vaginal Delivery Bahman Calculation Initial Bahman Date [...]
== END 2025-05-05 08:37 | disposition home or self-care (01) ==
LOC: CHSIMG 08:39
PROVIDERS: PCP Family Medicine; Visit Provider Orthopaedic Surgery
DX: S42.251D Displaced fracture of greater tuberosity of right humerus, subsequent encounter for fracture with routine healing (principal); M25.511 Pain in right shoulder
CPT/HCPCS: 73030